=== PATIENT | female | born 1970 | race Caucasian/White ===

== ENCOUNTER 2019-06-14 10:03 | Emergency (ER) | payer SELFPAY, MEDICAID ==
[2019-06-14] MEDS ORDERED: LIDOCAINE 1% (MDV) 10 ML INJ INJ (10:58)
[2019-06-14] MEDS: HYDROCODONE/APAP (5/325) TAB PO (11:11)
[2019-06-14] MEDS: LIDOCAINE 1% (MDV) 20 ML INJ SC (11:22)
== END 2019-06-14 12:10 | disposition home or self-care (01) ==
LOC: FTE 10:03
DX: N75.1 Abscess of Bartholin's gland (principal)
CPT/HCPCS: 56420; 99283-25